=== PATIENT | female | born 1950 | race Asian ===

== ENCOUNTER → 2017-07-01 | Outpatient (CLI) | payer OTHER ==
[2017-07-01] MEDS: SOD CHLORIDE 0.9% 100 ML (14:07)
[2017-07-01] MEDS: IOHEXOL 300MG/ML 150 ML BTL (14:07)
== END | disposition home or self-care (01) ==
LOC: C/S 12:51
DX: C56.1 Malignant neoplasm of right ovary (principal); K57.30 Diverticulosis of large intestine without perforation or abscess without bleeding; Z90.710 Acquired absence of both cervix and uterus
CPT/HCPCS: 71260; 74177

== ENCOUNTER 2017-09-06 09:14 | Inpatient (IN) | payer OTHER, MEDICARE ==
[2017-09-06] MEDS: ONDANSETRON 4 MG INJ IV (10:31)
[2017-09-06] MEDS: HYDROmorphONE 1 MG/5 ML IV SYRINGE IV (10:32)
[2017-09-06] MEDS: SOD CHLORIDE 0.9% 1,000 ML IV ×3 (10:32→20:16)
[2017-09-06 11:14] LABS: ADD MAN DIFF? NO
[2017-09-06 11:17] LABS: WHITE BLOOD COUNT 9.9 10^3/ul (4.8-10.8)
[2017-09-06 11:17] LABS: ABNORMAL IP MESSAGE 1; BASOPHILS % 0.3 % (0.0-2.0); EOSINOPHILS % 0.3 % (0.0-7.0); HEMATOCRIT 29.9 % (37.0-47.0); HEMOGLOBIN 10.2 g/dl (12.0-16.0); LYMPHOCYTES # 0.4 10^3/ul (0.8-2.9); LYMPHOCYTES % 4.1 % (15.0-51.0); MEAN CORPUSCULAR HEMOGLOBIN 31.4 pg (29.0-33.0); MEAN CORPUSCULAR HGB CONC 34.1 g/dl (32.0-37.0); MEAN PLATELET VOLUME 10.6 fl (7.4-10.4); MONOCYTE # 1.1 10^3/ul (0.3-0.9); MONOCYTES % 11.1 % (0.0-11.0); NEUTROPHIL # 7.6 10^3/ul (1.6-7.5); NEUTROPHILS % 76.3 % (39.0-77.0); NUCLEATED RED BLOOD CELLS # 0.1 10^3/ul (0.0-0.0); NUCLEATED RED BLOOD CELLS% 0.5 /100WBC (0.0-0.0); PLATELET COUNT 156 10^3/UL (140-415); RED BLOOD COUNT 3.25 10^6/ul (4.20-5.40); RED CELL DISTRIBUTION WIDTH 13.9 % (11.5-14.5)
[2017-09-06 11:19] LABS: POSITIVE DIFF @See below
[2017-09-06 11:39] LABS: ALANINE AMINOTRANSFERASE 293 IU/L (13-69); ALBUMIN 3.2 g/dl (3.3-4.9); ALBUMIN/GLOBULIN RATIO 0.96; ALKALINE PHOSPHATASE 221 IU/L (42-121); ANION GAP 27 (8-16); ASPARTATE AMINO TRANSFERASE 706 IU/L (15-46); BILIRUBIN,INDIRECT 0.6 mg/dl (0-1.1); BILIRUBIN,TOTAL 2.1 mg/dl (0.2-1.3); BLOOD UREA NITROGEN 56 mg/dl (7-20); CARBON DIOXIDE 12 mmol/L (21-31); CHLORIDE 85 mmol/L (97-110); GLUCOSE 71 mg/dl (70-220); LIPASE 569 U/L (23-300); POTASSIUM 4.6 mmol/L (3.5-5.1); TOTAL PROTEIN 6.5 g/dl (6.1-8.1)
[2017-09-06 11:51] LABS: SODIUM 119 mmol/L (135-144)
[2017-09-06 11:52] LABS: CREATININE 3.12 mg/dl (0.44-1.00)
[2017-09-06] MEDS ORDERED: ONDANSETRON 4 MG INJ IV ×2 (14:30→15:00)
[2017-09-06] MEDS ORDERED: ACETAMINOPHEN 325 MG TAB PO ×2 (14:30→15:00)
[2017-09-06] MEDS ORDERED: NACL 0.9% 3 ML SYG IV (15:00)
[2017-09-06] MEDS ORDERED: GLUCOSE GEL 15 GRAM TUBE BUCCAL (15:00)
[2017-09-06] MEDS ORDERED: METOCLOPRAMIDE 10 MG INJ IV (15:00)
[2017-09-06] MEDS ORDERED: DEXTROSE 50% 50 ML SYRINGE IV (15:00)
[2017-09-06] MEDS ORDERED: DOCUSATE SODIUM 100 MG CAP PO (15:00)
[2017-09-06] MEDS ORDERED: GLUCOSE GEL 15 GRAM TUBE PO ×2 (15:00)
[2017-09-06] MEDS ORDERED: LORAZEPAM 2 MG INJ IV (15:00)
[2017-09-06] MEDS ORDERED: BISACODYL (EC) 5 MG TAB PO (15:00)
[2017-09-06] MEDS ORDERED: MAGNESIUM HYDROXIDE 30ML CUP PO (15:00)
[2017-09-06] MEDS ORDERED: GLUCAGON 1 MG INJ IM (15:00)
[2017-09-06] MEDS ORDERED: HYDROCODONE/APAP (5/325) TAB PO (15:00)
[2017-09-06] MEDS ORDERED: hydrALAzine 20 MG INJ IV (15:30)
[2017-09-06] MEDS: PIPER-TAZO 2.25 GM (PMX) 50 ML IVPB ×2 (15:36→22:27)
[2017-09-06] MEDS: morphine 2 MG INJ IV ×2 (17:07→22:27)
[2017-09-06] MEDS: INSULIN ASPART [NOVOLOG] 3 ML PEN SC ×2 (18:00→21:00)
[2017-09-06 18:01] LABS: AADO2 Arterial 46.6 mmHg (7.0-24.0); Allen Test ACCEPTAB; Arterial Base Excess -11.2 mmol/L (-3.0-3); Arterial COHb 0.3 % (0.0-3.0); Arterial Fraction of Oxyhgb 93.3 % (93.0-99.0); Arterial MetHb 0.4 % (0.0-1.5); Arterial pCO2 24.8 mmhg (35-45); MODE ROOM AIR; Site Left Radial
[2017-09-06] MEDS: DEXTROSE 50% 50 ML SYRINGE IV (18:59)
[2017-09-06 19:27] LABS: ANION GAP 21 (8-16); BLOOD UREA NITROGEN 61 mg/dl (7-20); CALCIUM 9.4 mg/dl (8.4-10.2); CARBON DIOXIDE 14 mmol/L (21-31); CHLORIDE 89 mmol/L (97-110); GLUCOSE 52 mg/dl (70-220); POTASSIUM 5.1 mmol/L (3.5-5.1)
[2017-09-06 19:32] LABS: SODIUM 119 mmol/L (135-144)
[2017-09-06 19:46] LABS: ADD UMIC YES; UR ASCORBIC ACID NEGATIVE (NEGATIVE); UR BACTERIA FEW /HPF (NONE SEEN); UR BILIRUBIN (Dip) NEGATIVE (NEGATIVE); UR BLOOD (Dip) 2+ mg/dL (NEGATIVE); UR CLARITY SLIGHTLY CLOUDY (CLEAR); UR COLOR YELLOW (YELLOW); UR GLUCOSE (Dip) NEGATIVE (NEGATIVE); UR KETONES (Dip) NEGATIVE (NEGATIVE); UR LEUKOCYTE ESTERASE (Dip) NEGATIVE Leu/ul (NEGATIVE); UR NITRITE (Dip) NEGATIVE (NEGATIVE); UR NONSQUAMOUS EPITHELIAL CELL 1 /HPF (NONE SEEN); UR RBC 1 /HPF (0-5); UR SPECIFIC GRAVITY (Dip) 1.011 (1.003-1.030); UR SQUAMOUS EPITHELIAL CELL MODERATE /HPF (FEW); UR TOTAL PROTEIN (Dip) 1+ mg/dl (NEGATIVE); UR UROBILINOGEN (Dip) NEGATIVE (NEGATIVE); UR WBC 2 /HPF (0-5)
[2017-09-06 19:55] LABS: CREATININE,URINE RANDOM 52.27 mg/dl (20-320)
[2017-09-06 19:55] LABS: SODIUM,URINE RANDOM 14 mmol/L (30-90)
[2017-09-06 19:56] LABS: CREATININE 3.42 mg/dl (0.44-1.00)
[2017-09-06] MEDS: INSULIN GLARGINE [LANtus] 3 ML PEN SC (20:00)
[2017-09-06 20:03] LABS: LACTIC ACID 8.2 mmol/L (0.5-2.0)
[2017-09-06 20:20] LABS: OSMOLALITY,URINE 256 mOsm/kg (250-1200)
[2017-09-06 23:45] LABS: ALBUMIN 2.4 g/dl (3.3-4.9); ANION GAP 19 (8-16); BLOOD UREA NITROGEN 60 mg/dl (7-20); CALCIUM 9.1 mg/dl (8.4-10.2); CARBON DIOXIDE 15 mmol/L (21-31); CHLORIDE 90 mmol/L (97-110); GLUCOSE 77 mg/dl (70-220); PHOSPHORUS 3.7 mg/dl (2.5-4.9); POTASSIUM 4.9 mmol/L (3.5-5.1)
[2017-09-06 23:49] LABS: SODIUM 119 mmol/L (135-144)
[2017-09-06 23:55] LABS: CREATININE 3.56 mg/dl (0.44-1.00)
[2017-09-07] MEDS: SOD CHLORIDE 0.9% 1,000 ML IV ×2 (00:27→03:03)
[2017-09-07] MEDS: ACCU-CHEK XX (02:00)
[2017-09-07] MEDS: DEXTROSE 50% 50 ML SYRINGE IV ×2 (02:16→11:47)
[2017-09-07] MEDS: morphine 2 MG INJ IV ×3 (03:59→14:47)
[2017-09-07] MEDS: PANTOPRAZOLE 40 MG INJ IV (05:20)
[2017-09-07] MEDS: PIPER-TAZO 2.25 GM (PMX) 50 ML IVPB ×3 (05:20→23:28)
[2017-09-07] MEDS: INSULIN ASPART [NOVOLOG] 3 ML PEN SC ×4 (07:55→21:00)
[2017-09-07] MEDS: AMLODIPINE 5 MG TAB PO (08:16)
[2017-09-07] MEDS ORDERED: LOSARTAN 50 MG TAB PO (09:00)
[2017-09-07 09:21] LABS: HAAIG REFLEX REFLEX FILED
[2017-09-07 09:34] LABS: WHITE BLOOD COUNT 6.9 10^3/ul (4.8-10.8)
[2017-09-07 09:34] LABS: ABNORMAL IP MESSAGE 1; HEMATOCRIT 26.4 % (37.0-47.0); HEMOGLOBIN 8.9 g/dl (12.0-16.0); MEAN CORPUSCULAR HEMOGLOBIN 31.9 pg (29.0-33.0); MEAN CORPUSCULAR HGB CONC 33.7 g/dl (32.0-37.0); MEAN CORPUSCULAR VOLUME 94.6 fl (82.0-101.0); MEAN PLATELET VOLUME 10.6 fl (7.4-10.4); NUCLEATED RED BLOOD CELLS% 1.3 /100WBC (0.0-0.0); PLATELET COUNT 131 10^3/UL (140-415); RED BLOOD COUNT 2.79 10^6/ul (4.20-5.40); RED CELL DISTRIBUTION WIDTH 14.5 % (11.5-14.5)
[2017-09-07 09:39] LABS: ADD MAN DIFF? YES; POSITIVE DIFF @See below
[2017-09-07] MEDS: DEXTROSE 5%-0.9% NACL 1,000 ML IV (09:45)
[2017-09-07 09:49] LABS: LACTIC ACID 11.3 mmol/L (0.5-2.0)
[2017-09-07 09:59] LABS: ALANINE AMINOTRANSFERASE 353 IU/L (13-69); ALBUMIN 2.8 g/dl (3.3-4.9); ALKALINE PHOSPHATASE 175 IU/L (42-121); ANION GAP 26 (8-16); BILIRUBIN,INDIRECT 0.4 mg/dl (0-1.1); BILIRUBIN,TOTAL 1.8 mg/dl (0.2-1.3); BLOOD UREA NITROGEN 65 mg/dl (7-20); CALCIUM 9.2 mg/dl (8.4-10.2); CARBON DIOXIDE 12 mmol/L (21-31); CHLORIDE 88 mmol/L (97-110); CHOL/HDL RATIO 5.6 RATIO; CHOLESTEROL 84 mg/dl (100-200); GLUCOSE 55 mg/dl (70-220); HDL CHOLESTEROL 15 mg/dl (35-98); LDL CHOLESTEROL,CALCULATED 46 mg/dl; MAGNESIUM 2.9 mg/dl (1.7-2.5); POTASSIUM 5.1 mmol/L (3.5-5.1); SODIUM 121 mmol/L (135-144); TOTAL PROTEIN 5.9 g/dl (6.1-8.1); TRIGLYCERIDES 114 mg/dl (0-149)
[2017-09-07 10:04] LABS: HEMOGLOBIN A1C 5.8 % (0-5.9)
[2017-09-07 10:11] LABS: ASPARTATE AMINO TRANSFERASE 1071 IU/L (15-46); CREATININE 3.83 mg/dl (0.44-1.00)
[2017-09-07 10:25] LABS: ANISOCYTOSIS 1+ (0-0); BAND NEUTROPHILS #M 1.4 10^3/ul (0.0-0.6); BAND NEUTROPHILS % (M) 21 % (0-4); BURR CELLS 3+ (0-0); EOSINOPHILS % (M) 5 % (0-7); ERYTHROBLAST% (NRBC) (M) 2 % (0-0); LYMPHOCYTES #M 0.2 10^3/ul (0.8-2.9); LYMPHOCYTES % (M) 4 % (15-51); METAMYELOCYTES %M 1 % (0-0); MONOCYTE #M 0.6 10^3/ul (0.3-0.9); MONOCYTES % (M) 9 % (0-11); MYELOCYTES #M 0.2 10^3/ul (0.0-0.0); MYELOCYTES % (M) 3 % (0-0); PLATELET ESTIMATE NORMAL; POIKILOCYTOSIS 3+ (0-0); POLYCHROMASIA 1+ (0-0); SEGMENTED NEUTROPHILS (M) % 57 % (39-77); SMUDGE%M 1 % (0-0)
[2017-09-07 10:26] LABS: PHOSPHORUS 4.1 mg/dl (2.5-4.9)
[2017-09-07 10:27] LABS: LIPASE 1403 U/L (23-300)
[2017-09-07] MEDS: SOD CHLORIDE 0.9% 500 ML IV (11:16)
[2017-09-07 11:47] LABS: INR 1.77; PT RATIO 1.6
[2017-09-07 12:08] LABS: THYROID STIMULATING HORMONE 0.859 MIU/L (0.465-4.680)
[2017-09-07 12:09] LABS: HEPATITIS B SURFACE ANTIGEN NEGATIVE (NEGATIVE)
[2017-09-07 12:27] LABS: HEPATITIS B CORE ANTIBODY NEGATIVE (NEGATIVE); HEPATITIS C VIRAL ANTIBODY NEGATIVE (NEGATIVE)
[2017-09-07 13:56] LABS: ANION GAP 27 (8-16); BLOOD UREA NITROGEN 65 mg/dl (7-20); CALCIUM 9.4 mg/dl (8.4-10.2); CARBON DIOXIDE 11 mmol/L (21-31); CHLORIDE 87 mmol/L (97-110); GLUCOSE 53 mg/dl (70-220); POTASSIUM 5.3 mmol/L (3.5-5.1); SODIUM 120 mmol/L (135-144)
[2017-09-07 14:03] LABS: CREATININE 3.81 mg/dl (0.44-1.00)
[2017-09-07 18:03] LABS: ALPHA FETOPROTEIN 1.54 IU/L (0.00-7.21)
[2017-09-07] MEDS: HALOPERIDOL 5 MG INJ IV (19:29)
[2017-09-07 20:23] LABS: AADO2 Arterial 98.1 mmHg (7.0-24.0); Allen Test ACCEPTAB; Arterial Base Excess -27.1 mmol/L (-3.0-3); Arterial Blood Gas Oxygen Sat 98.2 mmHG (95.0-98.0); Arterial COHb 0.3 % (0.0-3.0); Arterial Fraction of Oxyhgb 97.1 % (93.0-99.0); Arterial HCO3 3.3 mmol/L (22.0-26.0); Arterial MetHb 0.8 % (0.0-1.5); Arterial Total Hemglobin 7.9 g/dl (12.0-18.0); Arterial pCO2 16.3 mmhg (35-45); Blood Gas IEPAP 15/5; Blood Gas PS 10; MODE MASK - BIPAP; Site Left Radial
[2017-09-07] MEDS ORDERED: NA BICARBONATE 8.4% 50 ML SYG (20:45)
[2017-09-07] MEDS ORDERED: PROPOFOL 100 ML (20:52)
[2017-09-07] MEDS ORDERED: SODIUM BICARBONATE (IV ADD) 50 MEQ in SOD CHLORIDE 0.45% 950 ML IV (21:00)
[2017-09-07] MEDS: PROPOFOL 100 ML IV (21:00)
[2017-09-07] MEDS: NA BICARBONATE 8.4% 50 ML SYG IV (21:15)
[2017-09-07] MEDS: INSULIN GLARGINE [LANtus] 3 ML PEN SC (21:33)
[2017-09-07] MEDS: NORepinephrine 8MG/250 ML (PMX 250 ML IV (21:49)
[2017-09-07] MEDS: SODIUM BICARBONATE (IV ADD) 150 MEQ in DEXTROSE 5% 1,000 ML IV (21:52)
[2017-09-07 22:17] LABS: AADO2 Arterial 127.5 mmHg (7.0-24.0); Allen Test ACCEPTAB; Arterial Base Excess -21.8 mmol/L (-3.0-3); Arterial Blood Gas Oxygen Sat 99.5 mmHG (95.0-98.0); Arterial COHb 0.3 % (0.0-3.0); Arterial Fraction of Oxyhgb 98.3 % (93.0-99.0); Arterial HCO3 7.8 mmol/L (22.0-26.0); Arterial MetHb 0.9 % (0.0-1.5); Arterial Total Hemglobin 7.2 g/dl (12.0-18.0); Arterial pCO2 32.6 mmhg (35-45); MODE VENT - AC; Site Left Radial
[2017-09-08] MEDS: ACCU-CHEK XX ×4 (02:00→13:08)
[2017-09-08] MEDS ORDERED: PHENYLephrine 20MG IN 250 ML 250 ML IV (02:00)
[2017-09-08 04:07] LABS: ABNORMAL IP MESSAGE 1; HEMATOCRIT 21.3 % (37.0-47.0); MEAN CORPUSCULAR HEMOGLOBIN 31.9 pg (29.0-33.0); MEAN CORPUSCULAR HGB CONC 31.5 g/dl (32.0-37.0); MEAN CORPUSCULAR VOLUME 101.4 fl (82.0-101.0); MEAN PLATELET VOLUME 10.1 fl (7.4-10.4); NUCLEATED RED BLOOD CELLS% 7.3 /100WBC (0.0-0.0); PLATELET COUNT 86 10^3/UL (140-415); RED CELL DISTRIBUTION WIDTH 15.1 % (11.5-14.5)
[2017-09-08 04:07] LABS: WHITE BLOOD COUNT 7.2 10^3/ul (4.8-10.8)
[2017-09-08 04:12] LABS: ADD MAN DIFF? YES; POSITIVE DIFF @See below
[2017-09-08 04:13] LABS: HEMOGLOBIN 6.7 g/dl (12.0-16.0)
[2017-09-08 04:29] LABS: ALANINE AMINOTRANSFERASE 928 IU/L (13-69); ALBUMIN 2.3 g/dl (3.3-4.9); ALKALINE PHOSPHATASE 135 IU/L (42-121); BILIRUBIN,INDIRECT 0.4 mg/dl (0-1.1); BILIRUBIN,TOTAL 2.2 mg/dl (0.2-1.3); TOTAL PROTEIN 4.8 g/dl (6.1-8.1)
[2017-09-08 04:30] LABS: AMYLASE 402 U/L (11-123)
[2017-09-08 04:48] LABS: ANION GAP 35 (8-16); BLOOD UREA NITROGEN 61 mg/dl (7-20); CALCIUM 8.5 mg/dl (8.4-10.2); CHLORIDE 91 mmol/L (97-110); GLUCOSE 196 mg/dl (70-220); SODIUM 128 mmol/L (135-144)
[2017-09-08 04:49] LABS: LACTIC ACID 21.5 mmol/L (0.5-2.0)
[2017-09-08 04:51] LABS: ANISOCYTOSIS 1+ (0-0); BAND NEUTROPHILS #M 1.5 10^3/ul (0.0-0.6); BAND NEUTROPHILS % (M) 21 % (0-4); ERYTHROBLAST% (NRBC) (M) 4 % (0-0); GIANT THROMBO% (M) 2 % (0-0); LYMPHOCYTES #M 0.7 10^3/ul (0.8-2.9); LYMPHOCYTES % (M) 10 % (15-51); METAMYELOCYTES #M 0.2 10^3/ul (0.0-0.0); METAMYELOCYTES %M 3 % (0-0); MYELOCYTES #M 0.2 10^3/ul (0.0-0.0); MYELOCYTES % (M) 3 % (0-0); PLATELET ESTIMATE DECREASED; POIKILOCYTOSIS 3+ (0-0); POLYCHROMASIA 3+ (0-0); PROMYELOCYTES #M 0.2 10^3/ul (0-0); PROMYELOCYTES % (M) 3 % (0-0); SEG NEUT #M 4.4 10^3/ul (1.6-7.5); SEGMENTED NEUTROPHILS (M) % 60 % (39-77); SMUDGE%M 2 % (0-0)
[2017-09-08 04:52] LABS: POTASSIUM 7.1 mmol/L (3.5-5.1)
[2017-09-08 04:54] LABS: CARBON DIOXIDE 9 mmol/L (21-31)
[2017-09-08 05:04] LABS: ASPARTATE AMINO TRANSFERASE 3202 IU/L (15-46)
[2017-09-08 05:20] LABS: MAGNESIUM 3.4 mg/dl (1.7-2.5)
[2017-09-08] MEDS ORDERED: NA POLYST SULFON 15 GM/60 ML BTL (05:23)
[2017-09-08 05:28] LABS: CREATININE 5.58 mg/dl (0.44-1.00); LIPASE 8775 U/L (23-300)
[2017-09-08] MEDS ORDERED: NA POLYST SULFON 15 GM/60 ML BTL NGT (05:30)
[2017-09-08] MEDS: INSULIN REGULAR, HUMAN 100 UNIT/1 ML 3ML VIAL IVP (05:34)
[2017-09-08] MEDS: DEXTROSE 50% 50 ML SYRINGE IV (05:35)
[2017-09-08] MEDS: SODIUM BICARBONATE (IV ADD) 150 MEQ in DEXTROSE 5% 1,000 ML IV (05:37)
[2017-09-08] MEDS: NA POLYST SULFON 15 GM/60 ML BTL PR (05:43)
[2017-09-08] MEDS: NA POLYST SULFON 30 GM/120 ML ENEMA PR ×2 (05:57→06:55)
[2017-09-08] MEDS: ALBUTEROL 0.083% (NEB) 2.5 MG/3 ML AMP HHN (05:58)
[2017-09-08] MEDS ORDERED: NA POLYST SULFON 30 GM/120 ML ENEMA PR (06:00)
[2017-09-08] MEDS: VASOPRESSIN 60 UNIT in DEXTROSE 5% 57 ML IV (06:54)
[2017-09-08] MEDS ORDERED: DOPamine-D5W 1.6 MG/ML 250 ML (07:02)
[2017-09-08] MEDS: PIPER-TAZO 2.25 GM (PMX) 50 ML IVPB ×2 (07:06→13:09)
[2017-09-08] MEDS: PANTOPRAZOLE 40 MG INJ IV (07:06)
[2017-09-08] MEDS: DOPamine-D5W 1.6 MG/ML 250 ML IV ×2 (07:22→11:34)
[2017-09-08] MEDS: EPINEPHrine 4 MG in DEXTROSE 5% 246 ML IV (07:29)
[2017-09-08] MEDS: INSULIN ASPART [NOVOLOG] 3 ML PEN SC (08:16)
[2017-09-08] MEDS: PROPOFOL 100 ML IV (08:18)
[2017-09-08] MEDS: AMLODIPINE 5 MG TAB PO (08:19)
[2017-09-08] MEDS: NORepinephrine 32 MG in DEXTROSE 5% 218 ML IV (08:29)
[2017-09-08] MEDS: PHENYLephrine 40 MG in DEXTROSE 5% 496 ML IV ×2 (08:50→10:44)
[2017-09-08 08:58] LABS: ANION GAP 34 (8-16); BLOOD UREA NITROGEN 60 mg/dl (7-20); CHLORIDE 92 mmol/L (97-110); GLUCOSE 261 mg/dl (70-220); MAGNESIUM 3.5 mg/dl (1.7-2.5); PHOSPHORUS 10.6 mg/dl (2.5-4.9); SODIUM 128 mmol/L (135-144)
[2017-09-08 09:22] LABS: CARBON DIOXIDE 9 mmol/L (21-31); POTASSIUM 7.2 mmol/L (3.5-5.1)
[2017-09-08] MEDS ORDERED: DEXTROSE 50% 50 ML SYRINGE IV ×2 (11:00)
[2017-09-08] MEDS: NA BICARBONATE 8.4% 50 ML SYG IV (11:08)
[2017-09-08] MEDS: INSULIN HUMAN REGULAR 100 UNIT in SOD CHLORIDE 0.9% 99 ML IV (12:20)
[2017-09-08] MEDS: PHENYLephrine 160 MG in DEXTROSE 5% 484 ML IV (12:54)
[2017-09-08] MEDS ORDERED: INSULIN ASPART [NOVOLOG] 3 ML PEN SC (13:00)
[2017-09-08 14:17] LABS: AHG CROSSMATCH 1 2
[2017-09-08 14:37] LABS: CREATININE, RANDOM URINE 61 mg/dL (20-320); MICROALBUMIN 25.8 mg/dL; MICROALBUMIN/CREATININE RATIO 423 (<30)
[2017-09-08 17:17] LABS: AADO2 Arterial 657.7 mmHg (7.0-24.0); Arterial HCO3 6.7 mmol/L (22.0-26.0); Arterial pCO2 26.3 mmhg (35-45); MODE VENT - AC; Site Right Brachial
[2017-09-09 11:12] LABS: MITOCHONDRIAL TB NEGATIVE (NEGATIVE); SMOOTH MUSCLE AB SCREEN NEGATIVE (NEGATIVE)
[2017-09-09 15:47] LABS: ANA SCREEN POSITIVE (NEGATIVE)
[2017-09-09 19:38] LABS: ANA PATTERN SPECKLED
== END 2017-09-08 14:43 | disposition expired | DRG 391 ==
LOC: E/R 09:14 → ICU 09-07 12:51 → TEL 14:30
PROC: 0BH17EZ Insertion of Endotracheal Airway into Trachea, Via Natural or Artificial Opening (ICD-10-PCS; principal; 2017-09-07)
PROC: 5A1935Z Respiratory Ventilation, Less than 24 Consecutive Hours (ICD-10-PCS; 2017-09-07)
PROC: 06HN33Z Insertion of Infusion Device into Left Femoral Vein, Percutaneous Approach (ICD-10-PCS; 2017-09-08)
PROC: 30233N1 Transfusion of Nonautologous Red Blood Cells into Peripheral Vein, Percutaneous Approach (ICD-10-PCS; 2017-09-08)
DX: K57.32 Diverticulitis of large intestine without perforation or abscess without bleeding (principal); K85.90 Acute pancreatitis without necrosis or infection, unspecified; J96.01 Acute respiratory failure with hypoxia; A41.9 Sepsis, unspecified organism; R65.21 Severe sepsis with septic shock; K76.7 Hepatorenal syndrome; E87.1 Hypo-osmolality and hyponatremia; N17.9 Acute kidney failure, unspecified; C56.9 Malignant neoplasm of unspecified ovary; C78.7 Secondary malignant neoplasm of liver and intrahepatic bile duct; E87.2 Acidosis; D68.9 Coagulation defect, unspecified; E87.5 Hyperkalemia; R60.1 Generalized edema; R00.1 Bradycardia, unspecified; D64.9 Anemia, unspecified; E11.9 Type 2 diabetes mellitus without complications; I10 Essential (primary) hypertension; R11.2 Nausea with vomiting, unspecified; Z79.4 Long term (current) use of insulin; Z87.891 Personal history of nicotine dependence
CPT/HCPCS: 36415; 36430; 36600; 71045; 74176; 74181; 76775; 80048; 80053; 80061; 80069; 80076; 81001; 81003; 82043; 82105; 82150; 82803; 82962; 83036; 83605; 83690; 83735; 83935; 84100; 84155; 84300; 84443; 85025; 85610; 86038; 86255; 86301; 86704; 86709; 86803; 86850; 86870; 86900; 86901; 86902; 86920; 87081; 87340; 93005; 93306; 94002; 94003; 94660; 94664; 96365; 96366; 96375; 99291-25